=== PATIENT | male | born 1960 | race Two or more races ===

== ENCOUNTER 2025-04-21 05:52 | Emergency (ER) | payer OTHER ==
[~2025-04-21] VITALS: Ht 182.9 cm; Wt 102.1 kg
[2025-04-21 06:25] VITALS: BP 142/80; O2SAT 93
[2025-04-21] MEDS ORDERED: 0.9 % SODIUM CHLORIDE 1,000 ML IV STA (08:12)
[2025-04-21] MEDS ORDERED: KETOROLAC TROMETHAMINE 30 MG VIAL IV STA (08:12)
[2025-04-21] MEDS ORDERED: ONDANSETRON HCL 2 MG/ML VIAL IV STA (08:13)
[2025-04-21] MEDS ORDERED: KETOROLAC TROMETHAMINE 30 MG VIAL ONE (08:20)
[2025-04-21] MEDS ORDERED: ONDANSETRON HCL 2 MG/ML VIAL ONE (08:21)
[2025-04-21 08:49] LABS: BASO % 0.6 % (0.1-1.2); EOS # 0.01 (0.04-0.54); EOS % 0.2 % (0.7-7.0); HEMATOCRIT 41.3 % (40.1-51.0); HEMOGLOBIN 13.8 g/dL (13.7-17.5); LYMPH # 0.44 (1.18-3.74); LYMPH % 8.4 % (19.3-53.1); MEAN CORPUSCULAR HEMOGLOBIN 27.5 pg (25.6-32.2); MONO # 0.87 (0.24-0.82); NEUT # 3.84 (1.56-6.13); NEUT % 73.2 % (34.0-71.1); PLATELET COUNT 258 K/uL (163-369); RED BLOOD COUNT 5.02 M/uL (4.63-6.08); RED CELL DISTRIBUTION WIDTH 14.6 % (11.6-14.4)
[2025-04-21 08:53] LABS: MONO % 16.6 % (4.7-12.5)
[2025-04-21 09:08] LABS: CALCIUM 9.5 mg/dL (8.5-10.1); CREATININE SERUM 1.03 mg/dL (0.70-1.30); GFR 72.25; POTASSIUM 4.13 mEq/L (3.5-5.1)
[2025-04-21 09:31] LABS: COVID-19 AG NEGATIVE (NEGATIVE)
[2025-04-21 09:32] LABS: INFLUENZA A AG NEGATIVE (NEGATIVE); INFLUENZA B AG NEGATIVE (NEGATIVE)
== END 2025-04-21 10:18 | disposition home or self-care (01) ==
LOC: ER 08:13
DX: J06.9 Acute upper respiratory infection, unspecified (principal); B34.9 Viral infection, unspecified; Z20.822 Contact with and (suspected) exposure to COVID-19
CPT/HCPCS: 36415; 93005; 96365; 99283; J0696; J1885; J3490